=== PATIENT | male | born 1965 | race Caucasian/White ===

== ENCOUNTER 2018-12-17 08:01 | Emergency (ER) | payer SELFPAY ==
--- NOTE | 2018-12-17 08:53 | RAD REPORT ---
EXAM DESCRIPTION: US - Extremity Venous Uni Ltd - 12/17/2018 8:37 am CLINICAL HISTORY: Right leg pain and swelling COMPARISON: None. TECHNIQUE: Real-time sonographic evaluation of the right lower extremity deep venous systems was per formed. FINDINGS: Normal compressibility, flow augmentation, phasic flow and spontaneous flow are identified in the right lower extremity common femoral, superficial femoral, popliteal and posterior tibial vei ns. No intraluminal filling defects seen. IMPRESSION: No DVT in the right lower extremity.
--- NOTE | 2018-12-17 09:17 | ER ---
Nurse's Notes [facility] Name: Pastor Linn Age: 53 yrs Sex: Male : 1965 Arrival Date: 12/17/2018 Time: 08:03 Bed 5 Private MD: Diagnosis: Sciatica, right side Presentation: 12/17 08:23 Presenting complaint: Patient states: RLE PAIN FROM BUTTOCK TO CALF. Transition of bp care: patient was not received from another setting of care. Onset of symptoms is unknown. Risk Assessment: Do you want to hurt yourself or someone else? Patient reports no desire to harm self or others. Initial Sepsis Screen: Does the patient meet any 2 criteria? No. Patient's initial sepsis screen is negative. Does the patient have a suspected source of infection? No. Patient's initial sepsis screen is negative. Care prior to arrival: None. 08:23 Method Of Arrival: Ambulatory bp 08:23 Acuity: ANDREA 4 bp Triage Assessment: 08:25 General: Appears in no apparent distress. uncomfortable, obese, Behavior is bp cooperative, appropriate for age, anxious. Pain: Complains of pain in right leg. EENT: No deficits noted. Neuro: Level of Consciousness is awake, alert, obeys commands, Oriented to person, place, time, situation, Appropriate for age. Cardiovascular: No deficits noted. Respiratory: Airway is patent Respiratory effort is even, unlabored, Respiratory pattern is regular, symmetrical. GI: No signs and/or symptoms were reported involving the gastrointestinal system. : No signs and/or symptoms were reported regarding the genitourinary system. Derm: No deficits noted. Musculoskeletal: Circulation, motion, and sensation intact. Range of motion: intact in all extremities. Historical: - Allergies: 08:25 No Known Allergies; bp - Home Meds: 08:25 None [Active]; bp - PMHx: 08:25 Diabetes - NIDDM; bp - Immunization history:: Adult Immunizations up to date. - Social history:: Smoking status: Patient uses tobacco products, smokes one pack cigarettes per day. - Ebola Screening: : Patient negative for fever greater than or equal to 101.5 degrees Fahrenheit, and additional compatible Ebola Virus Disease symptoms Patient denies exposure to infectious person Patient denies travel to an Ebola-affected area in the 21 days before illness onset No symptoms or risks identified at this time. Screenin:29 Abuse screen: Denies threats or abuse. Denies injuries from another. Nutritional bp screening: No deficits noted. Tuberculosis screening: No symptoms or risk factors identified. Fall Risk None identified. Assessment: 08:29 General: SEE TRIAGE NOTE. bp 08:34 Reassessment: PT TO U/S. bp 09:25 Reassessment: PT ON SHOT TIME FOR D/C. bp 09:34 Reassessment: PT D/C HOME AMBULATORY WITH FAMILY, DX WITH SCIATICA. bp Vital Signs: 08:27 BP 149 / 101; Pulse 80; Resp 16; Temp 98; Pulse Ox 98% ; Weight 108.86 kg; Height 5 ft. bp 9 in. (175.26 cm); 09:25 BP 129 / 87; Pulse 75; Resp 16; Pulse Ox 89% ; bp 08:27 Body Mass Index 35.44 (108.86 kg, 175.26 cm) bp ED Course: 08:03 Patient arrived in ED. rg4 08:11 Geremias Madison NP is PHCP. pm1 08:11 Jose Eduardo Manzo MD is Attending Physician. pm1 08:12 Efra Navas, PREM is Primary Nurse. jl7 08:23 Wang Amin, PREM is Primary Nurse. bp 08:24 Triage completed. bp 08:27 Arm band placed on. bp 08:29 Patient has correct armband on for positive identification. Bed in low position. Call bp light in reach. Side rails up X2. Adult w/ patient. 08:33 Extremity Venous Uni Ltd US Sent. bp 08:37 Extremity Venous Uni Ltd US In Process Unspecified. EDMS 09:29 No provider procedures requiring assistance completed. Patient did not have IV access bp during this emergency room visit. Administered Medications: 08:23 CANCELLED (Physician Discretion): [place] 10 mg-325 mg 1 tabs PO once pm1 09:10 Drug: Flexeril 10 mg Route: PO; bp 09:24 Follow up: Response: No adverse reaction; Pain is decreased bp 09:10 Drug: TORadol 60 mg Route: IM; Site: right gluteus; bp 09:25 Follow up: Response: No adverse reaction; Pain is decreased bp 09:10 Drug: SOLU-Medrol 125 mg Route: IM; Site: right gluteus; bp 09:25 Follow up: Response: No adverse reaction; Pain is decreased bp Outcome: 09:16 Discharge ordered by . pm1 09:34 Discharged to home ambulatory, with family. bp 09:34 Condition: stable 09:34 Discharge instructions given to patient, Instructed on discharge instructions, follow up and referral plans. no drinking with medication, no driving heavy equipment, medication usage, Demonstrated understanding of instructions, follow-up care, medications, Prescriptions given X 4. 09:35 Patient left the ED. bp Signatures: Dispatcher [employer] EDMS Geremias Madison NP [employer] pm1 Laura Escalona rg4 Efra Navas RN RN jl7 Wang Amin RN RN bp
--- NOTE | 2018-12-17 09:17 | EDPHYS ---
Physician Documentation [facility] Name: Pastor Linn Age: 53 yrs Sex: Male : 1965 Arrival Date: 12/17/2018 Time: 08:03 Bed 5 Private MD: ED Physician Jose Eduardo Manzo HPI: 12/17 08:50 This 53 yrs old Male presents to ER via Ambulatory with complaints of Low pm1 Back Pain, Leg Pain. 08:50 The patient presents with pain that is acute. Location: right hip. The problem was pm1 sustained without known cause. Onset: The symptoms/episode began/occurred 3 week(s) ago. 08:50 Modifying factors: The patient symptoms are alleviated by specific position, the pm1 patient symptoms are aggravated by sitting. Associated signs and symptoms: Pertinent negatives: abdominal pain, chest pain, constipation, dysuria, fever, headache, incontinence, nausea, numbness, tingling, urinary retention, vomiting. Severity of symptoms: in the emergency department the symptoms are actually worse. The patient has not experienced similar symptoms in the past. The patient has not recently seen a physician. Patient presents with right hip pain radiating down his right leg to right calf area. Patient works as a highway truck driver. no chest pain or shortness of breath. Historical: - Allergies: 08:25 No Known Allergies; bp - Home Meds: 08:25 None [Active]; bp - PMHx: 08:25 Diabetes - NIDDM; bp - Immunization history:: Adult Immunizations up to date. - Social history:: Smoking status: Patient uses tobacco products, smokes one pack cigarettes per day. - Ebola Screening: : Patient negative for fever greater than or equal to 101.5 degrees Fahrenheit, and additional compatible Ebola Virus Disease symptoms Patient denies exposure to infectious person Patient denies travel to an Ebola-affected area in the 21 days before illness onset No symptoms or risks identified at this time. ROS: 08:50 Constitutional: Negative for fever, chills, and weight loss, Eyes: Negative for injury, pm1 pain, redness, and discharge, ENT: Negative for injury, pain, and discharge, Neck: Negative for injury, pain, and swelling, Cardiovascular: Negative for chest pain, palpitations, and edema, Respiratory: Negative for shortness of breath, cough, wheezing, and pleuritic chest pain, Abdomen/GI: Negative for abdominal pain, nausea, vomiting, diarrhea, and constipation, Back: Negative for injury and pain. 08:50 Skin: Negative for injury, rash, and discoloration, Neuro: Negative for headache, weakness, numbness, tingling, and seizure. 08:50 MS/extremity: Positive for pain, of the right hip, Negative for decreased range of motion, deformity, paresthesias, swelling, tingling. Exam: 08:50 Constitutional: This is a well developed, well nourished patient who is awake, alert, pm1 and in no acute distress. Head/Face: Normocephalic, atraumatic. Eyes: Pupils equal round and reactive to light, extra-ocular motions intact. Lids and lashes normal. Conjunctiva and sclera are non-icteric and not injected. Cornea within normal limits. Periorbital areas with no swelling, redness, or edema. ENT: Nares patent. No nasal discharge, no septal abnormalities noted. Tympanic membranes are normal and external auditory canals are clear. Oropharynx with no redness, swelling, or masses, exudates, or evidence of obstruction, uvula midline. Mucous membranes moist. Neck: Trachea midline, no thyromegaly or masses palpated, and no cervical lymphadenopathy. Supple, full range of motion without nuchal rigidity, or vertebral point tenderness. No Meningismus. Chest/axilla: Normal chest wall appearance and motion. Nontender with no deformity. No lesions are appreciated. Cardiovascular: Regular rate and rhythm with a normal S1 and S2. No gallops, murmurs, or rubs. Normal PMI, no JVD. No pulse deficits. Respiratory: Lungs have equal breath sounds bilaterally, clear to auscultation and percussion. No rales, rhonchi or wheezes noted. No increased work of breathing, no retractions or nasal flaring. Abdomen/GI: Soft, non-tender, with normal bowel sounds. No distension or tympany. No guarding or rebound. No evidence of tenderness throughout. Back: No spinal tenderness. No costovertebral tenderness. Full range of motion. Skin: Warm, dry with normal turgor. Normal color with no rashes, no lesions, and no evidence of cellulitis. 08:50 Musculoskeletal/extremity: Extremities: grossly normal except: noted in the right hip: tenderness, palpation causes pain radiation down right leg, There is no evidence of contusion, decreased ROM, deformity, erythema, swelling. 08:50 Neuro: Orientation: is normal, Motor: is normal, moves all fours. Vital Signs: 08:27 BP 149 / 101; Pulse 80; Resp 16; Temp 98; Pulse Ox 98% ; Weight 108.86 kg; Height 5 ft. bp 9 in. (175.26 cm); 09:25 BP 129 / 87; Pulse 75; Resp 16; Pulse Ox 89% ; bp 08:27 Body Mass Index 35.44 (108.86 kg, 175.26 cm) bp MDM: 08:12 Patient medically screened. pm1 09:02 Data reviewed: vital signs. Data interpreted: Pulse oximetry: on room air is 98 %. pm1 Interpretation: normal. Counseling: I had a detailed discussion with the patient and/or guardian regarding: the historical points, exam findings, and any diagnostic results supporting the discharge/admit diagnosis, radiology results, the need for outpatient follow up, to return to the emergency department if symptoms worsen or persist or if there are any questions or concerns that arise at home. 03 08:21 Order name: Extremity Venous Uni Ltd ; Complete Time: 08:57 pm1 Administered Medications: 08:23 CANCELLED (Physician Discretion): [place] 10 mg-325 mg 1 tabs PO once pm1 09:10 Drug: Flexeril 10 mg Route: PO; bp 09:24 Follow up: Response: No adverse reaction; Pain is decreased bp 09:10 Drug: TORadol 60 mg Route: IM; Site: right gluteus; bp 09:25 Follow up: Response: No adverse reaction; Pain is decreased bp 09:10 Drug: SOLU-Medrol 125 mg Route: IM; Site: right gluteus; bp 09:25 Follow up: Response: No adverse reaction; Pain is decreased bp Disposition: 19:09 Co-signature as Attending Physician, Jose Eduardo Manzo MD I agree with the assessment and kdr plan of care. Disposition: 12/17/18 09:17 Discharged to Home. Impression: Sciatica, right side. - Condition is Stable. - Discharge Instructions: Sciatica. - Prescriptions for Tylenol- Codeine #3 300-30 mg Oral Tablet - take 2 tablets by ORAL route every 6 hours As needed; 20 tablet. Cyclobenzaprine 10 mg Oral Tablet - take 1 tablet by ORAL route every 8 hours As needed; 30 tablet. Diclofenac Sodium 75 mg Oral Tablet Sustained Release - take 1 tablet by ORAL route 2 times per day; 30 tablet. Medrol (Brandon) 4 mg Oral Tablets, Dose Pack - take 1 tablet by ORAL route as directed - follow package instructions; 1 packet. - Work release form, Medication Reconciliation Form, Thank You Letter, Prescription Opioid Use form. - Follow up: Emergency Department; When: As needed; Reason: Worsening of condition. Follow up: Private Physician; When: 2 - 3 days; Reason: Recheck today's complaints, Continuance of care, Re-evaluation by your physician. - Problem is new. - Symptoms have improved. Signatures: Dispatcher [employer] EDMS Jose Eduardo Manzo MD MD kdr Marinas, Patrick, [employer]PORT [employer]LECT[employer]ICIAN pm1 Wang Amin RN RN bp Corrections: (The following items were deleted from the chart) 08:23 08:21 [place] 10 mg-325 mg 1 tabs PO once ordered. pm1 pm1 09:35 09:17 12/17/2018 09:17 Discharged to Home. Impression: Sciatica, right side. Condition bp is Stable. Discharge Instructions: Sciatica. Prescriptions for Tylenol-Codeine #3 300-30 mg Oral Tablet - take 2 tablets by ORAL route every 6 hours As needed; 20 tablet, Cyclobenzaprine 10 mg Oral Tablet - take 1 tablet by ORAL route every 8 hours As needed; 30 tablet, Diclofenac Sodium 75 mg Oral Tablet Sustained Release - take 1 tablet by ORAL route 2 times per day; 30 tablet, Medrol (Brandon) 4 mg Oral Tablets, Dose Pack - take 1 tablet by ORAL route as directed - follow package instructions; 1 packet. and Forms are Work release form, Medication Reconciliation Form, Thank You Letter, Antibiotic Education, Prescription Opioid Use. Follow up: Emergency Department; When: As needed; Reason: Worsening of condition. Follow up: Private Physician; When: 2 - 3 days; Reason: Recheck today's complaints, Continuance of care, Re-evaluation by your physician. Problem is new. Symptoms have improved. pm1
[2018-12-17] MEDS ORDERED: METHYLPREDNISOLONE 125 MG INJ ONE (09:19)
[2018-12-17] MEDS ORDERED: KETOROLAC 30 MG/ML INJ ONE (09:19)
[2018-12-17] MEDS ORDERED: CYCLOBENZAPRINE 10 MG TAB ONE (09:19)
== END 2018-12-17 09:35 | disposition home or self-care (01) ==
LOC: ER 08:01
DX: M54.31 Sciatica, right side (principal); F17.210 Nicotine dependence, cigarettes, uncomplicated
CPT/HCPCS: 93971; 96372; 99283; J2930

== ENCOUNTER 2018-12-19 16:25 | Emergency (ER) | payer SELFPAY ==
[2018-12-19] MEDS ORDERED: HYDROMORPHONE HCL 2 MG/ML inj ONE (17:12)
--- NOTE | 2018-12-19 17:50 | ER ---
Nurse's Notes [facility] Name: Pastor Linn Age: 53 yrs Sex: Male : 1965 Arrival Date: 12/19/2018 Time: 16:26 Bed 7 Private MD: Diagnosis: Sciatica, right side Presentation: 12/19 16:31 Presenting complaint: Patient states: I have sciatic pain on the right side, I was here la1 on and they gave me meds but it is getting worse. Transition of care: patient was not received from another setting of care. Onset of symptoms was December 19, 2018. Risk Assessment: Do you want to hurt yourself or someone else? Patient reports no desire to harm self or others. Initial Sepsis Screen: Does the patient meet any 2 criteria? No. Patient's initial sepsis screen is negative. Does the patient have a suspected source of infection? No. Patient's initial sepsis screen is negative. Care prior to arrival: None. 16:31 Method Of Arrival: Ambulatory la1 16:31 Acuity: ANDREA 3 la1 Historical: - Allergies: 16:31 No Known Allergies; la1 - PMHx: 16:31 Diabetes - NIDDM; la1 - Immunization history:: Adult Immunizations up to date. - Social history:: Smoking status: Patient uses tobacco products, smokes one pack cigarettes per day. - Ebola Screening: : No symptoms or risks identified at this time. Screenin:05 Abuse screen: Denies threats or abuse. Denies injuries from another. Nutritional jl7 screening: No deficits noted. Tuberculosis screening: No symptoms or risk factors identified. Fall Risk None identified. Assessment: 16:50 General: Appears in no apparent distress. uncomfortable, Behavior is calm, cooperative, jl7 appropriate for age. Pain: Complains of pain in right leg Pain currently is 10 out of 10 on a pain scale. Neuro: Level of Consciousness is awake, alert, obeys commands, Oriented to person, place, time, situation. Cardiovascular: Patient's skin is warm and dry. Respiratory: Airway is patent Respiratory effort is even, unlabored, Respiratory pattern is regular, symmetrical. GI: No signs and/or symptoms were reported involving the gastrointestinal system. : No signs and/or symptoms were reported regarding the genitourinary system. EENT: No signs and/or symptoms were reported regarding the EENT system. Derm: Skin is pink, warm \T\ dry. 17:05 Reassessment: VO from Dr. Truong 1.5 mg Dilaudid IM. jl7 18:07 Reassessment: Pt reports decreased pain. jl7 Vital Signs: 16:32 BP 123 / 80; Pulse 71; Resp 16; Temp 97.3; Pulse Ox 98% on R/A; Weight 111.13 kg; la1 Height 5 ft. 9 in. (175.26 cm); 18:07 BP 125 / 80; Pulse 70; Resp 16 S; Pulse Ox 98% on R/A; Pain 6/10; jl7 16:32 Body Mass Index 36.18 (111.13 kg, 175.26 cm) la1 ED Course: 16:26 Patient arrived in ED. as 16:32 Triage completed. la1 16:32 Arm band placed on right wrist. la1 16:34 Efra Navas RN is Primary Nurse. jl7 16:43 Shane Truong MD is Attending Physician. gs 17:05 Patient has correct armband on for positive identification. Bed in low position. Call jl7 light in reach. Side rails up X 1. 17:49 Temo Weinberg DO is Referral Physician. gs 18:07 No provider procedures requiring assistance completed. Patient did not have IV access jl7 during this emergency room visit. Administered Medications: 17:10 Drug: Dilaudid 1.5 mg Route: IM; Site: right deltoid; jl7 18:08 Follow up: Response: No adverse reaction; Pain is decreased jl7 Outcome: 17:49 Discharge ordered by . gs 18:07 Discharged to home ambulatory, with family. jl7 18:07 Condition: stable 18:07 Discharge instructions given to patient, family, Instructed on discharge instructions, follow up and referral plans. medication usage, Demonstrated understanding of instructions, follow-up care, medications, Prescriptions given X 1. 18:08 Patient left the ED. jl7 Signatures: Ann Marie Andre Lee, RN RN la1 Efra Navas RN RN jl7 Shane Truong MD MD
--- NOTE | 2018-12-19 17:50 | EDPHYS ---
Physician Documentation [facility] Name: Pastor Linn Age: 53 yrs Sex: Male : 1965 Arrival Date: 12/19/2018 Time: 16:26 Bed 7 Private MD: ED Physician Shane Truong HPI: 12/19 17:45 This 53 yrs old Male presents to ER via Ambulatory with complaints of Back gs Pain. 17:45 The patient presents with pain that is chronic. The symptoms are located in the right gs sciatic area. Onset: The symptoms/episode began/occurred suddenly. The pain radiates to the right leg. Associated signs and symptoms: Pertinent negatives: incontinence, numbness, tingling, urinary retention, weakness. Modifying factors: The patient symptoms are alleviated by nothing, the patient symptoms are aggravated by any movement. Severity of symptoms: At their worst the symptoms were severe, in the emergency department the symptoms have improved, mildly. The patient has not experienced similar symptoms in the past. The patient has been recently seen at the [facility] Emergency Department, this week. Historical: - Allergies: 16:31 No Known Allergies; la1 - PMHx: 16:31 Diabetes - NIDDM; la1 - Immunization history:: Adult Immunizations up to date. - Social history:: Smoking status: Patient uses tobacco products, smokes one pack cigarettes per day. - Ebola Screening: : No symptoms or risks identified at this time. ROS: 17:45 All other systems are negative. gs Exam: 17:45 Eyes: Pupils equal round and reactive to light, extra-ocular motions intact. Lids and gs lashes normal. Conjunctiva and sclera are non-icteric and not injected. Cornea within normal limits. Periorbital areas with no swelling, redness, or edema. Cardiovascular: Regular rate and rhythm with a normal S1 and S2. No gallops, murmurs, or rubs. Normal PMI, no JVD. No pulse deficits. Respiratory: Lungs have equal breath sounds bilaterally, clear to auscultation and percussion. No rales, rhonchi or wheezes noted. No increased work of breathing, no retractions or nasal flaring. Abdomen/GI: Soft, non-tender, with normal bowel sounds. No distension or tympany. No guarding or rebound. No evidence of tenderness throughout. Skin: Warm, dry with normal turgor. Normal color with no rashes, no lesions, and no evidence of cellulitis. Neuro: Awake and alert, GCS 15, oriented to person, place, time, and situation. Cranial nerves II-XII grossly intact. Motor strength 5/5 in all extremities. Sensory grossly intact. Cerebellar exam normal. Normal gait. 17:45 MS/ Extremity: Pulses equal, no cyanosis. Neurovascular intact. Full, normal range of motion. 17:45 Constitutional: The patient appears alert, awake. 17:45 Back: normal spinal alignment noted, vertebral tenderness, is not appreciated, Straight leg raises: right lower extremity illicits pain, at 15 degrees. Vital Signs: 16:32 BP 123 / 80; Pulse 71; Resp 16; Temp 97.3; Pulse Ox 98% on R/A; Weight 111.13 kg; la1 Height 5 ft. 9 in. (175.26 cm); 18:07 BP 125 / 80; Pulse 70; Resp 16 S; Pulse Ox 98% on R/A; Pain 6/10; jl7 16:32 Body Mass Index 36.18 (111.13 kg, 175.26 cm) la1 MDM: 17:18 Patient medically screened. gs 17:45 Differential diagnosis: chronic back pain, Ligament Injury ruptured disc. Data gs reviewed: vital signs, nurses notes. Counseling: I had a detailed discussion with the patient and/or guardian regarding: the historical points, exam findings, and any diagnostic results supporting the discharge/admit diagnosis, the need for outpatient follow up. Response to treatment: the patient's symptoms have markedly improved after treatment, and as a result, I will discharge patient. Administered Medications: 17:10 Drug: Dilaudid 1.5 mg Route: IM; Site: right deltoid; jl7 18:08 Follow up: Response: No adverse reaction; Pain is decreased jl7 Disposition: 12/19/18 17:49 Discharged to Home. Impression: Sciatica, right side. - Condition is Stable. - Discharge Instructions: Sciatica. - Prescriptions for Tylenol- Codeine #4 300-60 mg Oral Tablet - take 1 tablet by ORAL route every 6 hours As needed; 12 tablet. - Work release form, Medication Reconciliation Form, Thank You Letter, Antibiotic Education, Prescription Opioid Use form. - Follow up: Temo Weinberg DO; When: 1 - 2 days; Reason: Re-evaluation by your physician. - Problem is new. - Symptoms have improved. Signatures: Bryn Patel RN RN la1 Efra Navas RN RN jl7 Shane Truong MD MD gs Corrections: (The following items were deleted from the chart) 18:08 17:49 12/19/2018 17:49 Discharged to Home. Impression: Sciatica, right side. Condition jl7 is Stable. Forms are Medication Reconciliation Form, Thank You Letter, Antibiotic Education, Prescription Opioid Use. Follow up: Temo Weinberg; When: 1 - 2 days; Reason: Re-evaluation by your physician. Problem is new. Symptoms have improved. gs
== END 2018-12-19 18:08 | disposition home or self-care (01) ==
LOC: ER 16:25
DX: M54.31 Sciatica, right side (principal); F17.210 Nicotine dependence, cigarettes, uncomplicated
CPT/HCPCS: 96372; 99283; J1170